=== PATIENT | male | born 1945 | race Caucasian/White ===

== ENCOUNTER 2023-11-02 12:20 | Inpatient (IN) | payer OTHER, MEDICARE ==
[~2023-11-02] VITALS: Ht 160 cm; Wt 65.3 kg
[2023-11-02 12:23] VITALS: BP 70/42; PULSE 109; RESP 16; TEMP 96.8; O2SAT 95
[2023-11-02 12:40] VITALS: O2SAT 95
[2023-11-02] MEDS: NACL 0.9% 2,000 ML IV SCH (12:44)
[2023-11-02] MEDS ORDERED: cefTRIAXone 1,000 MG VIAL ONE (13:02)
[2023-11-02 13:05] LABS: BASOPHILS % (AUTO) 0.2 % (0.0-2.0); EOSINOPHILS % (AUTO) 0.1 % (0.0-4.0); HEMATOCRIT 40.6 % (36-52); HEMOGLOBIN 13.4 g/dL (12.0-18.0); LYMPHOCYTES # (AUTO) 0.6 K/uL (2.0-11.5); LYMPHOCYTES % (AUTO) 4.8 % (20.5-51.1); MEAN CORPUSCULAR HEMOGLOBIN 29 pg (27-31); MEAN CORPUSCULAR HGB CONC 33 g/dL (33-37); MONOCYTES # (AUTO) 0.5 K/uL (0.8-1.0); MONOCYTES % (AUTO) 3.6 % (1.7-9.3); NEUTROPHILS # (AUTO) 12.1 K/uL (1.8-7.7); NEUTROPHILS % (AUTO) 91.3 % (42.2-75.2); PLATELET COUNT (AUTO) 203 K/uL (140-450); RED BLOOD CELL COUNT(AUTO) 4.61 MIL/uL (4.20-6.10); RED CELL DISTRIBUTION WIDTH 17.8 % (11.6-13.7); WHITE BLOOD COUNT (AUTO) 13.3 K/uL (4.8-10.8)
[2023-11-02] MEDS: cefTRIAXone 1,000 MG in DEXT 5% MINI-BAG PLUS 50 ML IV ONE (13:10)
[2023-11-02 13:18] LABS: BLOOD GAS BASE EXCESS -5.4 mmol/L (-2.0-2.0); BLOOD GAS HCO3 19.2 mmol/L (22-26); BLOOD GAS PCO2 34.2 mmHg (35-45); BLOOD GAS PH 7.367 (7.35-7.45); BLOOD GAS PO2 70.8 mmHg (75-100)
[2023-11-02 13:19] LABS: BLOOD GAS O2 SAT% 93.2 % (92.0-98.5)
[2023-11-02 13:23] LABS: ANION GAP 15.5 (8-16); CALCIUM 8.6 mg/dL (8.5-10.1); CARBON DIOXIDE 27.7 mmol/L (21-32); CHLORIDE 100 mmol/L (98-107); GLUCOSE 84 mg/dL (74-106); POTASSIUM 4.2 mmol/L (3.5-5.1); SODIUM SERUM 139 mmol/L (136-145)
[2023-11-02 13:24] LABS: INR 1.07 (0.8-1.2); PARTIAL THROMBOPLASTIN TIME 31.8 secs (22-35.6); PROTHROMBIN TIME 11.2 secs (10.8-13.4)
[2023-11-02 13:26] LABS: UREA NITROGEN, BLOOD 96 mg/dL (7-18)
[2023-11-02 13:30] LABS: ALANINE AMINOTRANSFERASE 24 U/L (12-78); ALBUMIN 2.9 g/dL (3.4-5.0); ALKALINE PHOSPHATASE 57 U/L (50-136); ASPARTATE AMINOTRANSFERASE 12 U/L (15-37); BILIRUBIN,DIRECT 0.3 mg/dL (0.0-0.3); CREATINE KINASE, TOTAL 28 U/L (39-308); TOTAL BILIRUBIN 1.8 mg/dL (0.0-1.0); TOTAL PROTEIN, SERUM 5.6 g/dL (6.4-8.2)
[2023-11-02 13:34] LABS: APPEARANCE,URINE CLEAR (CLEAR); BILIRUBIN,URINE NEGATIVE (NEGATIVE); BLOOD, URINE TRACE-I (NEGATIVE); COLOR,URINE YELLOW (YELLOW); LEUKOCYTE ESTERASE ,URINE 2+ (NEGATIVE); NITRITE, URINE POSITIVE (NEGATIVE); PROTEIN,URINE NEGATIVE (NEGATIVE); UGLUCOSE NEGATIVE (NEGATIVE); UROBILINOGEN,URINE 0.2 EU/dL (0.2 - 1)
[2023-11-02 13:44] LABS: RBC,URINE 0-5 /HPF (0-5)
[2023-11-02 13:45] LABS: BACTERIA,URINE FEW /HPF (None Seen); SQUAMOUS EPITHELIAL CELL,UR 0-3 (FEW) /LPF (0-3 (FEW))
[2023-11-02] MEDS: NACL 0.9% 1,000 ML IV ONE ×2 (14:16→14:37)
[2023-11-02] MEDS: MORPHINE SULFATE 4 MG/ML SYR IVP ONE (14:22)
[2023-11-02] MEDS ORDERED: FURO40TA9 PO (14:42)
[2023-11-02] MEDS ORDERED: GLIM1TAB PO (14:42)
[2023-11-02] MEDS ORDERED: TAMS0.4C97 PO (14:42)
[2023-11-02] MEDS ORDERED: APIX5TAB PO (14:42)
[2023-11-02] MEDS ORDERED: CARV25TA2 PO (14:42)
[2023-11-02] MEDS ORDERED: DAPA10TA PO (14:42)
[2023-11-02] MEDS ORDERED: LISI10TA30 PO (14:42)
[2023-11-02] MEDS ORDERED: MIDO10TA PO (14:42)
[2023-11-02] MEDS ORDERED: METF-713 PO (14:42)
[2023-11-02] MEDS ORDERED: ATOR40TA40 PO (14:42)
[2023-11-02 14:49] VITALS: O2SAT 99
[2023-11-02] MEDS ORDERED: ONDANSETRON 4 MG/2 ML VIAL IVP PRN (15:05)
[2023-11-02] MEDS ORDERED: ALBUTEROL 0.083% 2.5 MG/3 ML NEBU INH PRN (15:05)
[2023-11-02] MEDS ORDERED: HYDROcodone/APAP 5/325 MG 1 TAB TAB PO PRN (15:05)
[2023-11-02] MEDS ORDERED: ACETAMINOPHEN 325 MG TAB PO PRN (15:05)
[2023-11-02] MEDS: NACL 0.9% 1,000 ML IV SCH (17:12)
[2023-11-02] MEDS: BLOOD GLUCOSE MONITORING 1 DEV DEV FS SCH (17:30)
[2023-11-02 20:40] VITALS: PULSE 110; RESP 16; O2SAT 96
[2023-11-02] MEDS ORDERED: CARVEDILOL PO SCH (21:00)
[2023-11-02] MEDS: APIXABAN 2.5 MG TAB PO SCH (21:52)
[2023-11-02] MEDS: PIPERACILLIN/TAZOBACTAM 3.375 GM in DEXTROSE 5% 50 ML IV SCH (21:59)
[2023-11-02] MEDS: PIPERACILLIN/TAZOBACTAM 3.375 GM VIAL IV ONE (22:21)
[2023-11-03] VITALS (8 sets, daily range): BP systolic 98–132; BP diastolic 60–79; PULSE 62–121; RESP 16–18; TEMP 96.4–97.9; O2SAT 94–99
[2023-11-03] MEDS: PIPERACILLIN/TAZOBACTAM 3.375 GM VIAL IV ONE (05:50)
[2023-11-03] MEDS: DEXTROSE 50% 50 ML SYR IVP PRN (06:00)
[2023-11-03] MEDS: MIDODRINE 5 MG TAB PO SCH (08:31)
[2023-11-03] MEDS: FUROSEMIDE 40 MG TAB PO SCH (08:32)
[2023-11-03] MEDS: TAMSULOSIN 0.4 MG CAP PO SCH (08:32)
[2023-11-03 10:59] LABS: BASOPHILS % (AUTO) 0.4 % (0.0-2.0); EOSINOPHILS % (AUTO) 0.3 % (0.0-4.0); HEMATOCRIT 43.7 % (36-52); HEMOGLOBIN 14.5 g/dL (12.0-18.0); LYMPHOCYTES # (AUTO) 1.1 K/uL (2.0-11.5); LYMPHOCYTES % (AUTO) 9.1 % (20.5-51.1); MEAN CORPUSCULAR HEMOGLOBIN 29 pg (27-31); MEAN CORPUSCULAR HGB CONC 33 g/dL (33-37); MEAN CORPUSCULAR VOLUME 88.3 fL (80-94); MONOCYTES # (AUTO) 0.4 K/uL (0.8-1.0); MONOCYTES % (AUTO) 3.8 % (1.7-9.3); NEUTROPHILS # (AUTO) 10.1 K/uL (1.8-7.7); NEUTROPHILS % (AUTO) 86.4 % (42.2-75.2); PLATELET COUNT (AUTO) 192 K/uL (140-450); RED BLOOD CELL COUNT(AUTO) 4.95 MIL/uL (4.20-6.10); RED CELL DISTRIBUTION WIDTH 18.6 % (11.6-13.7); WHITE BLOOD COUNT (AUTO) 11.7 K/uL (4.8-10.8)
[2023-11-03 11:51] LABS: ANION GAP 14.5 (8-16); CALCIUM 9.3 mg/dL (8.5-10.1); CARBON DIOXIDE 29.3 mmol/L (21-32); CHLORIDE 101 mmol/L (98-107); CREATININE 1.6 mg/dL (0.6-1.3); GLUCOSE 183 mg/dL (74-106); POTASSIUM 3.8 mmol/L (3.5-5.1); SODIUM SERUM 141 mmol/L (136-145); UREA NITROGEN, BLOOD 56 mg/dL (7-18)
[2023-11-03] MEDS: INSULIN LISPRO SLIDING SCALE 100 UNITS/ML VIAL SUBQ PRN (18:02)
[2023-11-03] MEDS: ATORVASTATIN 20 MG TAB PO SCH (20:26)
[2023-11-03] MEDS ORDERED: CIPROFLOXACIN 400 MG/200 ML IV ONE (21:53)
[2023-11-03] MEDS ORDERED: [UNRECOGNIZED DRUG - OTHER] IV ONE (21:53)
[2023-11-04] VITALS (11 sets, daily range): BP systolic 91–111; BP diastolic 53–68; PULSE 78–115; RESP 17–18; TEMP 96.9–98.6; O2SAT 91–98
[2023-11-04 07:55] LABS: BASOPHILS % (AUTO) 0.2 % (0.0-2.0); EOSINOPHILS % (AUTO) 0.6 % (0.0-4.0); HEMATOCRIT 37.9 % (36-52); HEMOGLOBIN 12.6 g/dL (12.0-18.0); LYMPHOCYTES # (AUTO) 0.9 K/uL (2.0-11.5); LYMPHOCYTES % (AUTO) 9.8 % (20.5-51.1); MEAN CORPUSCULAR HEMOGLOBIN 30 pg (27-31); MEAN CORPUSCULAR HGB CONC 33 g/dL (33-37); MEAN CORPUSCULAR VOLUME 88.6 fL (80-94); MONOCYTES # (AUTO) 0.5 K/uL (0.8-1.0); MONOCYTES % (AUTO) 5.3 % (1.7-9.3); NEUTROPHILS # (AUTO) 7.4 K/uL (1.8-7.7); NEUTROPHILS % (AUTO) 84.1 % (42.2-75.2); PLATELET COUNT (AUTO) 167 K/uL (140-450); RED BLOOD CELL COUNT(AUTO) 4.28 MIL/uL (4.20-6.10); RED CELL DISTRIBUTION WIDTH 18.4 % (11.6-13.7); WHITE BLOOD COUNT (AUTO) 8.8 K/uL (4.8-10.8)
[2023-11-04 08:26] LABS: ANION GAP 12.2 (8-16); CALCIUM 8.6 mg/dL (8.5-10.1); CARBON DIOXIDE 32.9 mmol/L (21-32); CHLORIDE 98 mmol/L (98-107); CREATININE 1.7 mg/dL (0.6-1.3); LACTIC ACID 3.1 mmol/L (0.4-2.0); POTASSIUM 4.1 mmol/L (3.5-5.1); SODIUM SERUM 139 mmol/L (136-145); UREA NITROGEN, BLOOD 39 mg/dL (7-18)
[2023-11-04 08:27] LABS: GLUCOSE 408 mg/dL (74-106)
[2023-11-05] VITALS (9 sets, daily range): BP systolic 90–131; BP diastolic 52–78; PULSE 57–135; RESP 18–20; TEMP 97.4–98.8; O2SAT 94–100
[2023-11-05 05:51] LABS: ANION GAP 14.3 (8-16); CALCIUM 9.1 mg/dL (8.5-10.1); CARBON DIOXIDE 31.1 mmol/L (21-32); CHLORIDE 99 mmol/L (98-107); CREATININE 1.3 mg/dL (0.6-1.3); GLUCOSE 105 mg/dL (74-106); SODIUM SERUM 142 mmol/L (136-145); UREA NITROGEN, BLOOD 27 mg/dL (7-18)
[2023-11-05 05:54] LABS: POTASSIUM 2.4 mmol/L (3.5-5.1)
[2023-11-05 06:28] LABS: BASOPHILS % (AUTO) 0.1 % (0.0-2.0); EOSINOPHILS # (AUTO) 0.1 K/uL (0-0.4); EOSINOPHILS % (AUTO) 0.9 % (0.0-4.0); HEMATOCRIT 41.4 % (36-52); HEMOGLOBIN 13.7 g/dL (12.0-18.0); LYMPHOCYTES % (AUTO) 11.6 % (20.5-51.1); MEAN CORPUSCULAR HEMOGLOBIN 29 pg (27-31); MEAN CORPUSCULAR HGB CONC 33 g/dL (33-37); MEAN CORPUSCULAR VOLUME 88.4 fL (80-94); MONOCYTES # (AUTO) 0.6 K/uL (0.8-1.0); MONOCYTES % (AUTO) 7.1 % (1.7-9.3); NEUTROPHILS # (AUTO) 6.8 K/uL (1.8-7.7); NEUTROPHILS % (AUTO) 80.3 % (42.2-75.2); PLATELET COUNT (AUTO) 147 K/uL (140-450); RED BLOOD CELL COUNT(AUTO) 4.69 MIL/uL (4.20-6.10); RED CELL DISTRIBUTION WIDTH 17.9 % (11.6-13.7); WHITE BLOOD COUNT (AUTO) 8.4 K/uL (4.8-10.8)
[2023-11-05] MEDS: POTASSIUM CHLORIDE 10 MEQ TABER PO ONE (06:52)
[2023-11-05] MEDS: KCL 20 MEQ IN 100 mL PREMIX 200 ML IV ONE (06:58)
[2023-11-05] MEDS ORDERED: POTASSIUM CHLORIDE 10 MEQ TABER PO SCH (08:20)
[2023-11-05] MEDS: POTASSIUM CHLORIDE 40 MEQ, LIDOCAINE 1% 25 MG in NACL 0.9% 250 ML IV SCH (08:46)
[2023-11-05 12:57] LABS: ANION GAP 14.4 (8-16); CALCIUM 8.9 mg/dL (8.5-10.1); CARBON DIOXIDE 29.7 mmol/L (21-32); CHLORIDE 98 mmol/L (98-107); CREATININE 1.1 mg/dL (0.6-1.3); GLUCOSE 123 mg/dL (74-106); POTASSIUM 3.1 mmol/L (3.5-5.1); SODIUM SERUM 139 mmol/L (136-145); UREA NITROGEN, BLOOD 23 mg/dL (7-18)
[2023-11-05] MEDS: DILTIAZEM 60 MG TAB PO SCH (13:45)
[2023-11-05] MEDS: POTASSIUM CHLORIDE 40 MEQ, LIDOCAINE 1% 25 MG in NACL 0.9% 250 ML IV ONE (13:46)
[2023-11-06] VITALS (10 sets, daily range): BP systolic 96–133; BP diastolic 60–76; PULSE 86–119; RESP 18–20; TEMP 96.9–98; O2SAT 92–100
[2023-11-06 08:22] LABS: BASOPHILS % (AUTO) 0.5 % (0.0-2.0); EOSINOPHILS # (AUTO) 0.1 K/uL (0-0.4); EOSINOPHILS % (AUTO) 1.6 % (0.0-4.0); HEMATOCRIT 37.9 % (36-52); HEMOGLOBIN 12.3 g/dL (12.0-18.0); LYMPHOCYTES % (AUTO) 15.6 % (20.5-51.1); MEAN CORPUSCULAR HEMOGLOBIN 29 pg (27-31); MEAN CORPUSCULAR HGB CONC 33 g/dL (33-37); MEAN CORPUSCULAR VOLUME 89.8 fL (80-94); MONOCYTES # (AUTO) 0.7 K/uL (0.8-1.0); NEUTROPHILS # (AUTO) 4.7 K/uL (1.8-7.7); NEUTROPHILS % (AUTO) 72.3 % (42.2-75.2); PLATELET COUNT (AUTO) 175 K/uL (140-450); RED BLOOD CELL COUNT(AUTO) 4.21 MIL/uL (4.20-6.10); RED CELL DISTRIBUTION WIDTH 17.8 % (11.6-13.7); WHITE BLOOD COUNT (AUTO) 6.5 K/uL (4.8-10.8)
[2023-11-06 09:24] LABS: ANION GAP 11.4 (8-16); CALCIUM 8.5 mg/dL (8.5-10.1); CARBON DIOXIDE 31.3 mmol/L (21-32); CHLORIDE 102 mmol/L (98-107); CREATININE 1.1 mg/dL (0.6-1.3); GLUCOSE 131 mg/dL (74-106); POTASSIUM 3.7 mmol/L (3.5-5.1); SODIUM SERUM 141 mmol/L (136-145); UREA NITROGEN, BLOOD 15 mg/dL (7-18)
[2023-11-06] MEDS ORDERED: CLIN-25 PO (10:09)
[2023-11-06] MEDS ORDERED: DILT60TA97 PO (10:09)
[2023-11-06] MEDS ORDERED: DILT180C10 PO (10:10)
[2023-11-06] MEDS ORDERED: SKINTEGRITY HYDROGEL TP PRN (14:30)
[2023-11-06] MEDS ORDERED: FOAM DRESSING TP PRN (14:30)
[2023-11-06] MEDS ORDERED: CLIN150C1 PO (21:46)
[2023-11-07] MEDS ORDERED: FOAM DRESSING TP SCH (13:00)
[2023-11-07] MEDS ORDERED: SKINTEGRITY HYDROGEL TP SCH (13:00)
== END 2023-11-06 19:10 | disposition home or self-care (01) | DRG 720 ==
LOC: MED 12:20 → MMU 15:22 → OBSVTOIN 15:22 → MTU 18:04
PROVIDERS: ADMIT Student in an Organized Health Care Education/Training Program; ATTEND Student in an Organized Health Care Education/Training Program
DX: A41.9 Sepsis, unspecified organism (principal); E87.20 Acidosis, unspecified; E43 Unspecified severe protein-calorie malnutrition; I95.89 Other hypotension; I47.10 Supraventricular tachycardia, unspecified; L03.116 Cellulitis of left lower limb; I10 Essential (primary) hypertension; E11.9 Type 2 diabetes mellitus without complications; E78.5 Hyperlipidemia, unspecified; E87.6 Hypokalemia; N39.0 Urinary tract infection, site not specified; Z79.01 Long term (current) use of anticoagulants; Z79.899 Other long term (current) drug therapy; Z79.51 Long term (current) use of inhaled steroids; Z79.4 Long term (current) use of insulin; Z68.25 Body mass index [BMI] 25.0-25.9, adult
CPT/HCPCS: 36415; 36600; 71045; 80048; 80076; 81001; 82550; 82803; 82948; 83605; 83880; 84484; 85025; 85610; 85730; 87040; 87081; 87086; 87186; 93005; 93970; 96361; 96365; 96375; 99291; A4649; A6248; J0696; J0744; J1815; J2001; J2270; J2543; J3480; J7030; J7060; Q0092